=== PATIENT | male | born 1975 | race American Indian/Alaskan Native ===

== ENCOUNTER 2019-06-21 09:33 | Emergency (ER) | payer OTHER ==
[2019-06-21] MEDS ORDERED: ONDANSETRON 4 MG/2 ML INJ IV ONE (10:53)
[2019-06-21] MEDS ORDERED: MORPHINE 4 MG/1 ML INJ IV ONE ×2 (10:53→12:24)
[2019-06-21] MEDS ORDERED: KETOROLAC 30 MG/1 ML INJ IV ONE (10:53)
[2019-06-21 11:56] LABS: Basophils % (Auto) 0.9 % (0.0-1.8); Eosinophils # (Auto) 0.1 K/mm3 (0.0-0.4); Hematocrit 47.1 % (35.5-45.6); Hemoglobin 15.5 gm/dl (11.8-15.2); Lymphocytes # (Auto) 2.6 K/mm3 (1.2-5.4); Lymphocytes % (Auto) 46.9 % (13.4-35.0); Mean Corpuscular HGB Conc 33 % (32-34); Mean Corpuscular Volume 89 fl (84-94); Monocytes # (Auto) 0.4 K/mm3 (0.0-0.8); Monocytes % (Auto) 6.9 % (0.0-7.3); Platelet Count 282 K/mm3 (140-440); Red Blood Count 5.27 M/mm3 (3.65-5.03); Red Cell Distribution Width 14.8 % (13.2-15.2)
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
--- NOTE | 2019-06-21 12:08 | Cat Scan Report ---
CT HEAD WITHOUT CONTRAST INDICATION / CLINICAL INFORMATION: neck pain. TECHNIQUE: All CT scans at this location are performed using CT dose reduction for ALARA by means of automated e xposure control. COMPARISON: None available. FINDINGS: LIMITATIONS: Patient was scanned in an oblique position. HEMORRHAGE: No evidence of intracranial hemorrhage or extra-axial fluid collection. EXTRA-AXIAL SPACES: Cortical sulci, sylvian fissures and basilar cisterns have an unremarkable appear ance. VENTRICULAR SYSTEM: The ventricular system is of normal size and configuration. CEREBRAL PARENCHYMA: No areas of abnormal brain parenchymal attenuation are identified. There is no i ndication of recent infarction. MIDLINE SHIFT OR HERNIATION: There is no mass effect. CEREBELLUM / BRAINSTEM: Brainstem and cerebellum have an unremarkable appearance. INTRACRANIAL VESSELS:No abnormalities are identified on this noncontrast head CT. ORBITS: visualized portions of the orbits have an unremarkable appearance. SOFT TISSUES of HEAD: No significant abnormality. CALVARIUM: A portion of the calvarium on the lateral aspect of the right parietal bone is excluded fr om this study. No osseous abnormalities are observed. PARANASAL SINUSES / MASTOID AIR CELLS: Inflammatory disease is present within anterior ethmoid air ce lls bilaterally. Paranasal sinuses are otherwise free from inflammatory mucosal disease. Mastoid air cells are normally pneumatized. IMPRESSION: 1. No intracranial abnormalities are identified on head CT without contrast. Signer Name: Lyndon Cedeno MD Signed: 06/21/2019 12:03 PM Workstation Name: [id number]
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
[2019-06-21 12:16] LABS: BUN/Creatinine Ratio 13; Blood Urea Nitrogen 10 mg/dL (9-20); Hemolysis Index 10
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
[2019-06-21] MEDS ORDERED: HYDROmorphone 1 MG/1 ML INJ IV ONE (14:31)
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
[2019-06-21 15:55] VITALS: BP 126/80
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
== END 2019-06-21 16:58 | disposition home or self-care (01) ==
LOC: ED 09:33
DX: S16.1XXA Strain of muscle, fascia and tendon at neck level, initial encounter (principal); S40.022A Contusion of left upper arm, initial encounter; S80.12XA Contusion of left lower leg, initial encounter; F17.200 Nicotine dependence, unspecified, uncomplicated; Z79.899 Other long term (current) drug therapy; V59.49XA Driver of pick-up truck or van injured in collision with other motor vehicles in traffic accident, initial encounter; Y93.89 Activity, other specified; Y92.410 Unspecified street and highway as the place of occurrence of the external cause; Y99.8 Other external cause status
CPT/HCPCS: 36415; 70450; 70486; 71045; 71260; 72125; 72141; 74177; 80048; 85025; 93975; 96374; 96375; 96376; 99284; J1170; J1885; J2270; J2405; Q9967